=== PATIENT | male | born 1945 | race Caucasian/White ===

== ENCOUNTER 2016-05-26 07:28 | Emergency (ER) | payer MEDICARE, BC ==
[2016-05-26 07:39] VITALS: BP 155/78
--- NOTE | 2016-05-26 08:06 | UC ---
Respiratory Complaint HPI - HPI Summary HPI Summary: HAD COLD SYMPTOMS ABOUT A WEEK AND A HALF AGO THAT RESOLVED AFTER A FEW DAYS. WAS WELL UNTIL ABOUT 3 DAYS AGO WHEN HE DEVELOPED COUGH AND CONGESTION AGAIN. NO FEVER, ST, EAR PAIN, N/V/D. FEELS LIKE HIS CHEST IS "RATTLY" AT NIGHT. - History of Current Complaint Chief Complaint: UCGeneralIllness Stated Complaint: COLD COMPLAINT Time Seen by Provider: 05/26/16 07:51 Hx Obtained From: Patient Onset/Duration: Gradual Onset, Lasting Days, Still Present Timing: Constant Severity Initially: Moderate Severity Currently: Moderate Pain Intensity: 0 Pain Scale Used: 0-10 Numeric Character: Cough: Nonproductive Aggravating Factors: Nothing Alleviating Factors: Nothing Associated Signs And Symptoms: Positive: Wheezing, URI, Nasal Congestion, Hoarseness. 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 Denies: Thyroid Disease Cardiovascular History Of: Reports: Hypertension Denies: Cardiac Disorders Respiratory History Of: Denies: COPD, Asthma GI/ History Of: Denies: Ulcer - Surgical History Surgical History: Yes Surgery Procedure, Year, and Place: hernia repair x2 - Family History Known Family History: Positive: Hypertension, Diabetes - Social History Alcohol Use: Daily Alcohol Amount: 2 beers daily Substance Use Type: None Smoking Status (MU): Never Smoked Tobacco Type: Cigars Amount Used/How Often: very rarely - Immunization History Most Recent Influenza Vaccination: fall 2015 Review of Systems Constitutional: Negative ENT: Nasal Discharge Respiratory: Cough Cardiovascular: Negative Gastrointestinal: Negative All Other Systems Reviewed And Are Negative: Yes Physical Exam Triage Information Reviewed: Yes Appearance: Well-Appearing, No Pain Distress Vital Signs: Initial Vital Signs Temp 98.0 F 05/26/16 07:35 Pulse 70 05/26/16 07:35 Resp 18 05/26/16 07:35 BP 155/78 05/26/16 07:35 Pulse Ox 98 05/26/16 07:35 Eyes: Positive: Conjunctiva Clear ENT: Positive: Hearing grossly normal, Pharynx normal, TMs normal Neck: Positive: Supple, Nontender, No Lymphadenopathy Respiratory: Positive: No respiratory distress, No accessory muscle use, Rhonchi , Wheezing Cardiovascular Exam: Normal Abdomen Description: Positive: Soft Musculoskeletal: Positive: No Edema Neurological: Positive: Alert Psychological: Positive: Age Appropriate Behavior Skin: Negative: rashes UC Diagnostic Evaluation - Laboratory O2 Sat by Pulse Oximetry: 98 Respiratory Course/Dx - Differential Dx/Diagnosis Provider Diagnoses: ACUTE BRONCHITIS WITH BRONCHOSPASM Discharge - Discharge Plan Condition: Stable Disposition: HOME Prescriptions: Albuterol HFA INHALER* [Ventolin HFA Inhaler*] 2 puff INH Q4H PRN #1 mdi PRN Reason: Shortness Of Breath guaiFENesin/CODIEN 100MG-10MG* [Robitussin AC 100Mg-10Mg*] 5 - 10 ml PO Q6H PRN #150 ml MDD 40ML PRN Reason: Cough predniSONE TAB* [Deltasone TAB*] 40 mg PO DAILY #6 tab Patient Education Materials: Acute Bronchitis (ED), Bronchospasm (ED) Referrals: Gianni Moon MD [Primary Care Provider] - If Needed Additional Instructions: YOUR SYMPTOMS ARE LIKELY VIRAL IN ETIOLOGY, HOWEVER THE AMOXICILLIN YOU ARE ALREADY ON SHOULD COVER FOR ANY POSSIBLE BACTERIAL INFECTION. CONTINUE YOUR AMOXICILLIN TO COMPLETE COURSE. PREDNISONE AND ALBUTEROL TO HELP WITH AIRWAY INFLAMMATION AND WHEEZE. SEEK FOLLOW-UP IF YOU ARE NOT IMPROVING EXPECTED OVER THE NEXT 1-2 WEEKS.
== END 2016-05-26 08:20 | disposition home or self-care (01) ==
LOC: UCEAST 07:28
DX: J20.9 Acute bronchitis, unspecified (principal); E11.9 Type 2 diabetes mellitus without complications; Z79.4 Long term (current) use of insulin; F10.99 Alcohol use, unspecified with unspecified alcohol-induced disorder
CPT/HCPCS: 99212; G0463